=== PATIENT | female | born 1960 | race Caucasian/White ===

== ENCOUNTER 2016-07-13 09:55 | Emergency (ER) | payer MEDICAID ==
[~2016-07-13] VITALS: Ht 154.9 cm; Wt 54.4 kg
[2016-07-13] MEDS ORDERED: LISINOPRIL 5MG T5 MG PO (10:11)
--- NOTE | 2016-07-13 10:18 | Urgent Treatment Center Report ---
History of Present Issue Date/Time Seen by Provider 07/13/16 1017 Visit Reason Pt arrived:Walked Presenting Problem:PT STATES SHE STARTED FEEELING BAD LAST WEEK. COUGHING AND CHEST CONGESTION. FEER LAST WEEK, LIGHT HEADED AND TAKING OTC COLD MEDS. Location if Accident: Onset of symptoms date/time:/ or onset unknown for:MEDICAL HX UNKNOWN Have you (or family members/close friends) recently traveled outside the [place]? N If Yes, where/when: Have you had exposure to infectious disease within the past month? TB? Other? Specify: States that she sleeps with her little grandson that was diagnosed with Influenza last weekend states that she started feeling bad last week that has continued to get worse. States that she has been coughing with congestion and running a fever on and off. She has been taking over the counter cold medications but not getting any relief ALLERGIES Coded Allergies: No Known Allergies (07/13/16) Home Medications Reported Medications LISINOPRIL (Lisinopril) 5 MG PO DAILY History Medical History General Hypertension? Yes Immunization HX DT/Tetanus 1-4 Years Ago Surgical Hx Previous Surgery?Y HYSTERECTOMY Social History Smoking Hx Smoker: Never Smoker Tobacco: No Alcohol Alcohol: No Review of Systems All Other Systems Reviewed and Negative ENT nose discharge, nose congestion, throat pain. Respiratory cough Cardiovascular denies no symptoms reported Gastrointestinal denies no symptoms reported Genitourinary denies: no symptoms reported. Musculoskeletal other (body aches) Psychiatric/Neurological denies no symptoms reported Physical Exam Vital Signs Vital Signs Date Time Temp Pulse Resp B/P Pulse O2 O2 Flow FiO2 Ox Delivery Rate 07/13 1008 98.6 100 20 187/93 98 General Appearance Over all appears ill, nose red, pale in color laying on the exam table Ear, Nose, Throat sinus pain/drainage, nasal congestion, throat red, irritated, yellowish/green thick drainage from nose Respiratory Status Yes: trachea midline, chest symmetrical, non tender chest. No: respiratory distress. 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 No Results/Orders Orders Procedure Date/time Status [facility] FLU A,B 07/13 1014 Active Departure Departure Time of Disposition 1033 Disposition DC Home or Self Care(routine) Clinical Impression Primary Impression: Sinusitis Qualifiers: Sinusitis location: frontal Chronicity: acute Recurrence: not specified as recurrent Qualified Code: J01.10 - Acute frontal sinusitis, unspecified Condition STABLE Patient Instructions DI for Sinusitis, Sinus Headache, Sinusitis Additional Instructions Drink plenty of fluids Over the counter Motrin or Tylenol as needed for fever or pain Follow up with family doctor Take all medications as prescribed Return if needed Discharge Counseling Counseled pt/family regarding diagnosis, test results, medications/RX, home care, follow up needs Prescriptions Current Visit Scripts Azithromycin (Zithromycin (Z-HOLA) 250MG Tab) 250 MG PO DAILY #6 TAB TAKE TWO (2) TABLETS ON DAY 1, THEN ONE (1) TABLET DAY #2 THRU #5 Methylprednisolone (Medrol Dose Hola) 4 MG PO UD #1 HOLA TAKE DIRECTED ON PACKAGING Fluticasone Propionate (Flonase 50 Mcg Nasal [place]) 2 SPRAY NA DAILY #1 BOT at 1033
--- NOTE | 2016-07-13 10:18 | Urgent Treatment Center Report ---
History of Present Issue Date/Time Seen by Provider 07/13/16 1017 Visit Reason Pt arrived:Walked Presenting Problem:PT STATES SHE STARTED FEEELING BAD LAST WEEK. COUGHING AND CHEST CONGESTION. FEER LAST WEEK, LIGHT HEADED AND TAKING OTC COLD MEDS. Location if Accident: Onset of symptoms date/time:/ or onset unknown for:MEDICAL HX UNKNOWN Have you (or family members/close friends) recently traveled outside the [place]? N If Yes, where/when: Have you had exposure to infectious disease within the past month? TB? Other? Specify: States that she sleeps with her little grandson that was diagnosed with Influenza last weekend states that she started feeling bad last week that has continued to get worse. States that she has been coughing with congestion and running a fever on and off. She has been taking over the counter cold medications but not getting any relief ALLERGIES Coded Allergies: No Known Allergies (07/13/16) Home Medications Reported Medications LISINOPRIL (Lisinopril) 5 MG PO DAILY History Medical History General Hypertension? Yes Immunization HX DT/Tetanus 1-4 Years Ago Surgical Hx Previous Surgery?Y HYSTERECTOMY Social History Smoking Hx Smoker: Never Smoker Tobacco: No Alcohol Alcohol: No Review of Systems All Other Systems Reviewed and Negative ENT nose discharge, nose congestion, throat pain. Respiratory cough Cardiovascular denies no symptoms reported Gastrointestinal denies no symptoms reported Genitourinary denies: no symptoms reported. Musculoskeletal other (body aches) Psychiatric/Neurological denies no symptoms reported Physical Exam Vital Signs Vital Signs Date Time Temp Pulse Resp B/P Pulse O2 O2 Flow FiO2 Ox Delivery Rate 07/13 1008 98.6 100 20 187/93 98 General Appearance Over all appears ill, nose red, pale in color laying on the exam table Ear, Nose, Throat sinus pain/drainage, nasal congestion, throat red, irritated, yellowish/green thick drainage from nose Respiratory Status Yes: trachea midline, chest symmetrical, non tender chest. No: respiratory distress. 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 No Results/Orders Orders Procedure Date/time Status [facility] FLU A,B 07/13 1014 Active Departure Departure Time of Disposition 1033 Disposition DC Home or Self Care(routine) Clinical Impression Primary Impression: Sinusitis Qualifiers: Sinusitis location: frontal Chronicity: acute Recurrence: not specified as recurrent Qualified Code: J01.10 - Acute frontal sinusitis, unspecified Condition STABLE Patient Instructions DI for Sinusitis, Sinus Headache, Sinusitis Additional Instructions Drink plenty of fluids Over the counter Motrin or Tylenol as needed for fever or pain Follow up with family doctor Take all medications as prescribed Return if needed Discharge Counseling Counseled pt/family regarding diagnosis, test results, medications/RX, home care, follow up needs Prescriptions Current Visit Scripts Azithromycin (Zithromycin (Z-HOLA) 250MG Tab) 250 MG PO DAILY #6 TAB TAKE TWO (2) TABLETS ON DAY 1, THEN ONE (1) TABLET DAY #2 THRU #5 Methylprednisolone (Medrol Dose Hola) 4 MG PO UD #1 HOLA TAKE DIRECTED ON PACKAGING Fluticasone Propionate (Flonase 50 Mcg Nasal [place]) 2 SPRAY NA DAILY #1 BOT at 1032
[2016-07-13] MEDS ORDERED: FLONASE 50 MCG16 GM (10:33)
[2016-07-13] MEDS ORDERED: ZITHROMAX Z PA250 MG PO (10:33)
[2016-07-13] MEDS ORDERED: MEDROL 4MG. DOSE4 MG PO (10:33)
[2016-07-13 10:40] VITALS: BP 187/93
== END 2016-07-13 10:40 | disposition home or self-care (01) ==
LOC: UTC 09:55
DX: J01.10 Acute frontal sinusitis, unspecified (principal)